=== PATIENT | female | born 1935 | race Caucasian/White ===

== ENCOUNTER 2017-08-24 14:35 | Outpatient (RCR) | payer MEDICARE ==
[~2017-08-24 14:35] MED LIST: AMLO-96 PO; AMLO-99 PO; CYCL1DRO6 OP; DOCU-416 PO; EYE VIT PO; FLU180SY9 IM; FLUT15.87; NAPR1TAB10 PO; NAPR220C12 PO; RANI150C17 PO; [UNRECOGNIZED DRUG - CODE] PO; [UNRECOGNIZED DRUG - OTHER] PO
--- NOTE | 2017-08-25 09:00 | PT INITIAL EVALUATION ---
MEDICAL DIAGNOSIS: R26.89 Imbalance TREATMENT DIAGNOSIS: Same, vestibular hypofunction DATE OF ONSET: 08/17/17 SUBJECTIVE: Adrianne Hudson (Vi) presents to PT for imbalance, a forward fall while kneeling on the floor at home, 08/17/17, without injury. She relates she' s fallen when leaning forward in the past. She has moved to [place] in May, to be near family. Vi relates she hasn't been able to exercise since moving her, and her R knee to hip has become stiff and sore. She notes she has memory problems with date, losing papers. Pain location is R lateral knee to posterior and lateral R hip and described as ache. Pain scale is 0/10 now, at rest, worse with walking (pain 8/10 after 100 feet) and better with rest. REHAB PROBLEM LIST: Increased Pain Impaired Cognition Decreased ROM Decreased Strength Impaired Transfers Decreased Endurance Decreased Balance Decreased Mobility Decreased Gait PREVIOUS MEDICAL HISTORY: R TKA 2004, HTN, macular degeneration. OCCUPATION: Retired, independent with driving, hygiene, housework, but tub transfers are difficult due to balance. OBJECTIVE: Posture: Heels 6" apart, upright trunk, midline head, ER LE's ~30 degrees. ROM: B LE PROM WNL, with R knee flexion 125 deg., L 130 deg., and B extension 0 degrees. Tight IT bands, quads, hip flexors and calves. Strength: LE's 4-/5 except calves 3-/5. Sensation: Plantar feet: decreased protective sensation, G 3.84, [place]- [place] monofilament testing. Mobility: Sit to stand without UE use with three attempts, increased anterior postural sway with immediate standing balance. Gait: Functional gait assessment , a 53% impairment with strong weaving during gait with head motion and eyes closed L>R. Jayashree ambulates normally on the level with feet clearing the floor but not passing each other. She turns slowly with balance control. Balance: Normal WS B, able to hold tandem stand on firm surface, eyes open 25 seconds, B with strong trunk movement. Static stand on Aire[employer] foam with increased anterior postural sway, LOB with eyes closed. Other Objective Findings: Clock drawing WNL. Date recall correctly with 10 seconds to process. ASSESSMENT: Adrianne Hudson (Vi) presents with altered balance, gait, question of L vestibular hypofunction, mild peripheral neuropathy affecting fall risk, head down ADL's, gait and exercise tolerance. She did well with gait training today with mild fatigue. Short Term Goals 4 weeks: Adrianne ambulates at 8 sec./10 feet, exercises 30 minutes with R leg pain 5/10, is able to bend over to feed her dogs without falling forward. 8 weeks: Adrianne transfers in/out of her tub easily, exercises 45 minutes with R LE pain 2-4/10, gait speed 6 sec./10 feet (community ambulator), performs standing brain picker items from the floor with normal balance reactions, gait with head motion with normal line of progression. Patient's Goals Return to exercise, but without R leg pain, improve balance during walking. PLAN: Patient to be seen for Strengthening/condition Ice/Heat Range of Motion Stretching Neuromuscular Re-ed Gait Trg/Balance Trg Home Exercise Program 2x/Week for 2 Months Thank you for this referral. If you have any questions, comments, or concerns about this report or plan, please contact me at . PARISH
--- NOTE | 2017-09-15 14:03 | PT PLAN OF CARE ---
Physician: Dr. Anaya Vences Patient is being seen: once Therapist: Abby Jean Baptiste, PT Medical Diagnosis: R26.89 Imbalance Treatment Diagnosis: Same, vestibular hypofunction Date of Onset: 08/17/17 Date of Initial Evaluation: 08/24/17 Date patient was last seen: 09/11/17 Number of treatments: 1 Number of cancellations/No shows: 5 INTERVENTIONS: Gait Training GOALS: All not met: 4 weeks: Adrianne ambulates at 8 sec./10 feet, exercises 30 minutes with R leg pain 5/10, is able to bend over to feed her dogs without falling forward. 8 weeks: Adrianne transfers in/out of her tub easily, exercises 45 minutes with R LE pain 2-4/10, gait speed 6 sec./10 feet (community ambulator), performs standing filler picker items from the floor with normal balance reactions, gait with head motion with normal line of progression. PATIENT'S GOAL: Return to exercise, but without R leg pain, improve balance during walking. All not met Patient Compliance: Poor Prognosis: Excellent Reasons for discontinuing therapy: Adrianne continues to no show her PT appointments, even after I called her. I'll DC PT due to non-attendance. Thank you. PARISH
== END 2017-08-24 18:00 | disposition home or self-care (01) ==
LOC: PT 14:35
PROVIDERS: ATTEND Family Medicine
DX: R26.89 Other abnormalities of gait and mobility (principal); H81.90 Unspecified disorder of vestibular function, unspecified ear; R29.6 Repeated falls; M25.561 Pain in right knee; M25.551 Pain in right hip; R41.3 Other amnesia; I10 Essential (primary) hypertension; H35.30 Unspecified macular degeneration; Z96.651 Presence of right artificial knee joint
CPT/HCPCS: 97162

== ENCOUNTER → 2017-10-19 | Outpatient (CLI) | payer MEDICARE ==
[~2017-10-19] MED LIST changes: +RANI-318 PO; +SERT25TA90 PO
[2017-10-19 17:27] LABS: PLATELET COUNT, AUTOMATED 231 K/uL (150-450)
== END ==
LOC: LAB 17:02
PROVIDERS: ATTEND Family Medicine
DX: I10 Essential (primary) hypertension (principal); R30.0 Dysuria
CPT/HCPCS: 81001; 82040; 82247; 82310; 82374; 82435; 82565; 82947; 84075; 84132; 84155; 84295; 84450; 84460; 84520; 85025

== ENCOUNTER → 2018-01-12 | Outpatient (CLI) | payer MEDICARE, MEDICAID ==
[~2018-01-12] MED LIST changes: +ACET500T68 PO; +LISI5TAB25 PO; +SERT-184 PO; +VIT1CAPS9 PO; +[UNRECOGNIZED DRUG - CODE] MC; +[UNRECOGNIZED DRUG - CODE] MC
== END ==
LOC: LAB 01:04
PROVIDERS: ATTEND Family Medicine
DX: I10 Essential (primary) hypertension (principal)
CPT/HCPCS: 36415; 82310; 82374; 82435; 82565; 82947; 84132; 84295; 84520

== ENCOUNTER → 2018-05-18 | Outpatient (CLI) | payer MEDICARE, MEDICAID ==
[~2018-05-18] MED LIST changes: +AMLO-111 PO; +AMLO-113 PO; -AMLO-96 PO; -AMLO-99 PO; +DICL100G39 TOP; +PSYL575P5 PO
== END ==
LOC: ZZSPRING 01:24
PROVIDERS: ATTEND Family Medicine
DX: I10 Essential (primary) hypertension (principal)
CPT/HCPCS: 36415; 82040; 82247; 82310; 82374; 82435; 82565; 82947; 84075; 84132; 84155; 84295; 84450; 84460; 84520; 85027

== ENCOUNTER → 2018-07-20 | Outpatient (CLI) | payer MEDICARE, MEDICAID ==
[~2018-07-20] MED LIST changes: -AMLO-111 PO; -AMLO-113 PO; +AMLO-125 PO; +AMLO-127 PO; +CYAN100017 PO
== END ==
LOC: ZZSPRING 00:35
PROVIDERS: ATTEND Family Medicine
DX: N18.9 Chronic kidney disease, unspecified (principal); R10.9 Unspecified abdominal pain
CPT/HCPCS: 36415; 82040; 82247; 82310; 82374; 82435; 82565; 82947; 84075; 84132; 84155; 84295; 84450; 84460; 84520; 85027

== ENCOUNTER → 2018-08-17 | Outpatient (CLI) | payer MEDICARE, MEDICAID ==
[~2018-08-17] MED LIST changes: +ACET-2031 PO; +ASPI-757 PO; +CALC1TAB24 PO; +GUAI237L36 PO; +LOPE2CAP15 PO; +MAG-65 PO; +PEG15DRO5 OP
== END ==
LOC: ZZSPRING 02:18
PROVIDERS: ATTEND Family Medicine
DX: D53.9 Nutritional anemia, unspecified (principal)
CPT/HCPCS: 36415; 82310; 82374; 82435; 82565; 82607; 82947; 84132; 84295; 84520; 85027

== ENCOUNTER → 2018-08-18 | Outpatient (CLI) | payer MEDICARE, MEDICAID ==
--- NOTE | 2018-08-18 10:23 | RADIOLOGY IMAGING REPORT ---
FACILITY: [facility] PATIENT NAME: Adrianne Hudson : 1935 MR: [id number] V: [id number] EXAM DATE: ORDERING PHYSICIAN: KELVIN DEAN TECHNOLOGIST: Location: [facility] [place] Patient: Adrianne Hudson : 1935 Visit/Account:[id number] Date of Sevice: 08/18/2018 CAROTID HISTORY: Bruit COMPARISON: None. FINDINGS: Grayscale, duplex and color Doppler interrogation of the extracranial carotid and vertebral arteries was performed bilateral. On the right, peak systolic velocities within the common and internal carotid arteries are 103 and 12 2 cm/sec respectively. There is moderate hard plaque at the right carotid bulb extending into the pr oximal right internal carotid artery. Antegrade flow within the common, internal and external caroti d arteries as well as vertebral artery. ICA/CCA ratio 1.2. On the left, peak systolic velocities within the common and internal carotid arteries are 122 and 160 cm/sec respectively. There is a small to moderate soft plaque in the mid left common carotid artery .. There are scattered small hard plaques in the mid to distal left common carotid artery. There is at least moderate plaque at the left carotid bulb extending into the proximal left internal carotid artery Antegrade flow within the common, internal and external carotid arteries as well as vertebral artery. ICA/CCA ratio 1.3. IMPRESSION: There is a moderate amount of hard plaque right carotid bulb extending into the proximal right tax intern al carotid artery although no hemodynamically significant lesions by velocity criteria There is at least moderate plaque at the left carotid bulb extending into the proximal left internal carotid artery producing an elevated peak systolic velocity of 160 cm/s which falls within the 50-69% stenosis category range Velocity criteria are extrapolated from diameter data as defined by the Society of Radiologists in Ul trasound Consensus Conference Radiology 2003; 229;340-346 Report Dictated By: Tali Berg MD at 08/18/2018 10:16 AM Report E-Signed By: Tali Berg MD at 08/18/2018 10:19 AM WSN:[id number]
== END ==
LOC: US 00:25
PROVIDERS: ATTEND Family Medicine
DX: I65.23 Occlusion and stenosis of bilateral carotid arteries (principal)
CPT/HCPCS: 93880

== ENCOUNTER → 2018-09-07 | Outpatient (CLI) | payer MEDICARE, MEDICAID | LOC: ZZSPRING 02:01 | PROVIDERS: ATTEND Family Medicine | DX: R09.89 Other specified symptoms and signs involving the circulatory and respiratory systems (principal); N18.9 Chronic kidney disease, unspecified | CPT/HCPCS: 36415; 82040; 82247; 82310; 82374; 82435; 82565; 82947; 84075; 84132; 84155; 84295; 84450; 84460; 84520 ==

== ENCOUNTER → 2018-12-08 | Outpatient (CLI) | payer MEDICARE, MEDICAID ==
[~2018-12-08] MED LIST changes: +CHOL100059 PO
--- NOTE | 2018-12-08 11:11 | RADIOLOGY IMAGING REPORT ---
FACILITY: [facility] [place] PATIENT NAME: Adrianne Hudson : 1935 MR: [id number] V: [id number] EXAM DATE: ORDERING PHYSICIAN: KELVIN DEAN [place]CHNOLOG[place]: [place] [facility] [place] Adrianne [place] : 1935 Visit/Account:[id number] Date of Sevice: 12/08/2018 KUB SINGLE VIEW ABDOMEN Given history: stomach pain COMPARISON: None Bowel gas: Bowel gas pattern is within normal limits with scattered air through large and small christelle l. No appreciable fecal retention. No abnormal calcifications seen. Additional findings: None pertinent. IMPRESSION: Normal study. Report Dictated By: Wilfredo Montero MD at 12/08/2018 11:03 AM Report E-Signed By: Wilfredo Montero MD at 12/08/2018 11:04 AM WSN:[id number]
== END ==
LOC: RAD 10:19
PROVIDERS: ATTEND Family Medicine
DX: R10.9 Unspecified abdominal pain (principal); R53.83 Other fatigue
CPT/HCPCS: 74018

== ENCOUNTER → 2018-12-14 | Outpatient (CLI) | payer MEDICARE, MEDICAID | LOC: ZZSPRING 01:02 | PROVIDERS: ATTEND Family Medicine | DX: R10.9 Unspecified abdominal pain (principal); R53.83 Other fatigue | CPT/HCPCS: 36415; 82040; 82247; 82310; 82374; 82435; 82565; 82947; 84075; 84132; 84155; 84295; 84443; 84450; 84460; 84520; 85027 ==

== ENCOUNTER → 2018-12-21 | Outpatient (CLI) | payer MEDICARE, MEDICAID | LOC: ZZSPRING 00:36 | PROVIDERS: ATTEND Family Medicine | DX: E87.5 Hyperkalemia (principal) | CPT/HCPCS: 36415; 82310; 82374; 82435; 82565; 82947; 84132; 84295; 84520 ==

== ENCOUNTER → 2019-01-11 | Outpatient (REF) | payer MEDICARE, MEDICAID | LOC: ZZSENDIN 08:38 | PROVIDERS: ATTEND Nurse Practitioner Family | DX: R19.7 Diarrhea, unspecified (principal); K59.00 Constipation, unspecified; I10 Essential (primary) hypertension; K21.9 Gastro-esophageal reflux disease without esophagitis; F32.9 Major depressive disorder, single episode, unspecified ==

== ENCOUNTER → 2019-01-11 | Outpatient (CLI) | payer MEDICARE, MEDICAID ==
[2019-01-11 09:00] LABS: PLATELET COUNT, AUTOMATED 275 K/uL (150-450)
== END ==
LOC: ZZSPRING 01:28
PROVIDERS: ATTEND Nurse Practitioner Family
DX: R19.7 Diarrhea, unspecified (principal); K59.00 Constipation, unspecified; K21.9 Gastro-esophageal reflux disease without esophagitis; I10 Essential (primary) hypertension; F32.9 Major depressive disorder, single episode, unspecified
CPT/HCPCS: 36415; 82040; 82150; 82247; 82310; 82374; 82435; 82565; 82947; 83690; 84075; 84132; 84155; 84295; 84450; 84460; 84520; 85025

== ENCOUNTER 2019-01-13 01:23 | Day surgery (SDC) | payer MEDICARE, MEDICAID ==
[2019-01-13] VITALS (7 sets, daily range): BP systolic 137–164; BP diastolic 76–85
[~2019-01-13] VITALS: Ht 152.4 cm; Wt 64.9 kg
[2019-01-13] MEDS ORDERED: PROPOFOL EMUL(*) 10MG/ML 20 ML 20 ML ONE ×2 (08:50→10:45)
[2019-01-13] MEDS ORDERED: NORMOSOL R SOLN(*) 1000 ML BAG 1,000 ML IV PRN (09:00)
[2019-01-13] MEDS ORDERED: LIDOCAINE/SOD BICARB 8.4% SYR ID ONE (09:00)
== END 2019-01-13 12:30 | disposition home or self-care (01) ==
LOC: OR 01:23
PROVIDERS: ATTEND Internal Medicine Gastroenterology
DX: K64.9 Unspecified hemorrhoids (principal); K57.30 Diverticulosis of large intestine without perforation or abscess without bleeding; D12.0 Benign neoplasm of cecum; K62.1 Rectal polyp
CPT/HCPCS: 00811; 45380; 45385; 88305; J2704